=== PATIENT | female | born 1980 | race Asian ===

== ENCOUNTER 2016-09-08 01:42 | Inpatient (IN) | payer OTHER ==
[2016-09-08] VITALS (7 sets, daily range): BP systolic 105–136; BP diastolic 59–89; PULSE 71–78; RESP 16–69; Ht 160 cm; Wt 67.7 kg
[~2016-09-08] VITALS: Ht 160 cm; Wt 67.7 kg
[~2016-09-08 01:42] MED LIST: ACET325T33 PO; CEPH-443 PO; CIPR500T4 PO; ERYTOPOI LEFT EYE; HYDR-3498 PO; IBUP-1542 PO; ONDA4TAB8 PO; PREN-29 PO
[2016-09-08] MEDS ORDERED: LACTATED RINGER'S 1,000 ML IV SCH (02:20)
[2016-09-08] MEDS ORDERED: METHYLERGONOVINE 0.2 MG INJ IM PRN ×2 (02:30→05:00)
[2016-09-08] MEDS ORDERED: LIDOCAINE 1% (MPF) 30 ML INJ INJ PRN (02:30)
[2016-09-08] MEDS ORDERED: LACTATED RINGER'S 1,000 ML IV PRN (02:30)
[2016-09-08] MEDS ORDERED: IBUPROFEN 600 MG TAB PO PRN (02:30)
[2016-09-08] MEDS ORDERED: MISOPROSTOL 200 MCG TAB PR PRN ×2 (02:30→05:00)
[2016-09-08] MEDS ORDERED: CARBOPROST 250 MCG INJ IM PRN ×2 (02:30→05:00)
[2016-09-08] MEDS ORDERED: OXYTOCIN 30 UNITS/LR 500 ML IV SCH ×2 (02:30)
[2016-09-08] MEDS ORDERED: BUTORPHANOL 2 MG INJ IV PRN (02:30)
[2016-09-08] MEDS ORDERED: OXYTOCIN 30 UNITS/LR 500 ML IV PRN ×2 (02:30→05:00)
[2016-09-08 03:09] LABS: ADD SCAN DIFF NO
[2016-09-08 03:19] LABS: BASOPHILS % 0.3 % (0.0-2.0); EOSINOPHILS % 0.3 % (0.0-7.0); HEMATOCRIT 33.2 % (37.0-47.0); HEMOGLOBIN 10.9 g/dl (12.0-16.0); LYMPHOCYTES # 1.9 10^3/ul (0.8-2.9); LYMPHOCYTES % 21.5 % (15.0-51.0); MEAN CORPUSCULAR HEMOGLOBIN 28.5 pg (29.0-33.0); MEAN CORPUSCULAR HGB CONC 32.8 g/dl (32.0-37.0); MEAN CORPUSCULAR VOLUME 86.9 fl (82.0-101.0); MEAN PLATELET VOLUME 11.7 fl (7.4-10.4); MONOCYTE # 0.6 10^3/ul (0.3-0.9); MONOCYTES % 7.2 % (0.0-11.0); NEUTROPHILS % 69.7 % (39.0-77.0); PLATELET COUNT 293 10^3/UL (140-415); RED BLOOD COUNT 3.82 10^6/ul (4.20-5.40); RED CELL DISTRIBUTION WIDTH 13.6 % (11.5-14.5); WHITE BLOOD COUNT 8.6 10^3/ul (4.8-10.8)
[2016-09-08 03:27] LABS: INR 0.87; PROTIME 11.8 Sec (12.2-14.2); PT RATIO 0.9
[2016-09-08 03:28] LABS: PARTIAL THROMBOPLASTIN TIME 28.9 Sec (25.0-35.0)
--- NOTE | 2016-09-08 04:48 | HP ---
Date/Time of Note Date/Time of Note DATE: 09/08/16 TIME: 04:46 OB - History Hx of Present Chief Complaint: contractions Estimated Due Date: Sep 10, 2016 : 4 Para: 2 Spontaneous : 0 Therapeutic : 1 Ultrasounds: Normal mid trimester US Obstetrical Complications: None Medical Complications: None Past Family/Social History * Past Medical, Surgical, Family and Obstetric Histories reviewed from chart. GBS Status: Negative OB Admission Exam Vital Signs Vital Signs Vital Signs Date Time Temp Pulse Resp B/P Pulse Ox O2 Delivery O2 Flow Rate FiO2 09/08/16 01:53 97.9 77 18 136/89 Room Air Physical Exam HEENT: WNL Heart: Rhythm Normal Lungs: Clear Abdomen: WNL Extremities: Normal Cervical Dilatation: 4cm Effacement: 50% Station: -1 Membranes: Intact Heart Rate: 130's Accelerations: Accelerations Present Decelerations: No Decelerations Varibility: Moderate Last 72 hours Lab Results CBC & BMP 09/08/16 02:50 OB Assessment/Plan Reason for admission: active labor Plan: Expectant Management FALLON BAIN MD Sep 08, 2016 04:48
--- NOTE | 2016-09-08 04:51 | LDN ---
Date/Time of Note Date/Time of Note DATE: 09/08/16 TIME: 04:48 Delivery Summary Weeks of Gestation 39 weeks and 5 days Placenta Delivered: Spontaneously Meconium: none Episiotomy: No Perineal laceration: 1 Laceration repair: First degree perineal laceration repaired Anesthesia type: Local Estimated blood loss: 200 Sponge & Needle done & correct: Yes All needle counts correct: Yes Any foreign bodies felt in the: No Problems: Delivery Information Sex Sex: female Apgars 1 Minute: 8 5 Minute: 9 Suctioning Nose & mouth suctioned at brijesh: Yes Delee suction performed: No Umbilical Cord Umbilical cord with: 3 Vessels Cord presentations: nuchal cord Nuchal cord present X: 1 Cord Blood was obtained: Yes Mother & Baby Disposition Disposition Mom & Baby to Maternity; Good: Yes FALLON BAIN MD Sep 08, 2016 04:51
[2016-09-08] MEDS ORDERED: LACTATED RINGER'S 1,000 ML IV* SCH (04:52)
[2016-09-08] MEDS ORDERED: DIBUCAINE 1% 30 GM OINT PR PRN (05:00)
[2016-09-08] MEDS ORDERED: WITCH HAZEL/GLYCERIN PAD PR PRN (05:00)
[2016-09-08] MEDS ORDERED: BENZOCAINE 20% 56 ML SPRAY TOP PRN (05:00)
[2016-09-08] MEDS ORDERED: ACETAMINOPHEN/CODEINE #3 TAB PO PRN (05:00)
[2016-09-08] MEDS ORDERED: ACETAMINOPHEN 325 MG TAB PO PRN (05:00)
[2016-09-08] MEDS: IBUPROFEN 600 MG TAB PO SCH ×4 (06:00→23:36)
--- NOTE | 2016-09-08 06:40 | TRIAGE ---
OB Triage Datetime Report Generated by CPN: 09/08/2016 06:39 Datetime: 09/08/2016 04:54 Stage of : Recovery Pain Assessment Pain Scale: 0 Pain Presence: None/Denies Pain Type: N/A Datetime: 09/08/2016 04:39 Stage of : Recovery Pain Assessment Pain Scale: 0 Pain Presence: None/Denies Pain Type: N/A Datetime: 09/08/2016 04:24 Stage of : Recovery Pain Assessment Pain Scale: 0 Pain Presence: None/Denies Pain Type: N/A Datetime: 09/08/2016 04:09 Stage of : Recovery Pain Assessment Pain Scale: 0 Pain Presence: None/Denies Pain Type: N/A Datetime: 09/08/2016 03:54 Stage of : Recovery Temperature Route: Oral Pain Assessment Pain Scale: 0 Pain Presence: None/Denies Pain Type: N/A Datetime: 09/08/2016 03:48 Labor Evaluation Frequency: 1-3 Monitor Mode: External Duration (sec)2399: 40-70 Quality: Strong Pattern: Normal: <= 5 Contractions in 10 Minutes Resting Tone [place]: Relaxed Heart Rate FHR Baseline Rate: 135 Monitor Mode: External US FHR Baseline Changes: No Baseline Change Variability: Moderate 6-25 bpm Accelerations: 15X15 Decelerations: None Category: Category I Comments: Pt pushing for delivery during this interval Comments: Baby girl delivered. Datetime: 09/08/2016 03:43 Membrane Status: Ruptured Membranes Rupture Method: Artificial Amniotic Fluid Color: Clear Amniotic Fluid Amount: Moderate Datetime: 09/08/2016 03:33 Vaginal Exam Dilatation (cms): 10.0 Effacement (%): 100 Station: 0 Membrane Status: Bulging Datetime: 09/08/2016 03:31 Vaginal Exam Dilatation (cms): 9.5 Effacement (%): 100 Station: 0 Datetime: 09/08/2016 03:30 Labor Evaluation Frequency: 2-3 Monitor Mode: External Duration (sec)2399: 60-70 Quality: Strong Pattern: Normal: <= 5 Contractions in 10 Minutes Resting Tone [place]: Relaxed Heart Rate FHR Baseline Rate: 125 Monitor Mode: External US FHR Baseline Changes: No Baseline Change Variability: Moderate 6-25 bpm Accelerations: 15X15 Decelerations: None Category: Category I Datetime: 09/08/2016 03:22 Vaginal Exam Dilatation (cms): 9.5 Effacement (%): 90 Station: -1 Exam By: MG Membrane Status: Bulging Datetime: 09/08/2016 03:12 Pain Assessment Pain Scale: 10 Pain Presence: Intermittent Pain Type: Contraction; Pressure Pain Location: Abdomen; Back; Perineum Pain Relief Measures: Comfort Measures Datetime: 09/08/2016 03:05 Stage of : Labor Datetime: 09/08/2016 03:02 Vaginal Exam Dilatation (cms): 9.5 Effacement (%): 90 Station: -2 Exam By: MG Membrane Status: Bulging Datetime: 09/08/2016 03:00 Labor Evaluation Frequency: 2-5 Monitor Mode: External Duration (sec)2399: 40-60 Quality: Moderate Pattern: Normal: <= 5 Contractions in 10 Minutes Resting Tone [place]: Relaxed Heart Rate FHR Baseline Rate: 135 Monitor Mode: External US FHR Baseline Changes: No Baseline Change Variability: Moderate 6-25 bpm Accelerations: 15X15 Decelerations: None Category: Category I Datetime: 09/08/2016 02:34 Assessment Type: Admission Assessment Maternal Assessment Level of Consciousness: Fully Conscious DTR's/Clonus: DTRs 2+; No Clonus Headache: Denies Blurred Vision: No Respiratory Effort: Unlabored; Regular Rhythm; Equal Expansion Breath Sounds, Left: Clear and Equal Breath Sounds, Right: Clear and Equal Nausea/Vomiting: Denies RUQ Epigastric Pain: Denies Lower Extremities Edema: None Degree: None Upper Extremities Edema: None Degree: None Facial Edema: None Fall Risk Assessment History of Falling: (0) No Secondary Diagnosis: (0) No Ambulatory Aid: (0) Bedrest/Nurse Assist Gait: (0) Normal/Bedrest/Immobile Mental Status: (0) Oriented to Own Ability Datetime: 09/08/2016 02:25 Labor Evaluation Frequency: 2-4 Monitor Mode: External Duration (sec)2399: 90-130 Quality: Moderate Pattern: Normal: <= 5 Contractions in 10 Minutes Resting Tone [place]: Relaxed Heart Rate FHR Baseline Rate: 125 Monitor Mode: External US FHR Baseline Changes: No Baseline Change Variability: Minimal - Undetectable to <=5 bpm Category: Category II Datetime: 09/08/2016 02:10 Time of Arrival: 09/08/2016 02:30 EGA: 40.3 Arrived By: Ambulatory Arrived From: Other Unit in Hospital Labor Evaluation Frequency: 2-3 Monitor Mode: External Duration (sec)2399: 70-120 Quality: Moderate Pattern: Normal: <= 5 Contractions in 10 Minutes Resting Tone [place]: Relaxed Heart Rate FHR Baseline Rate: 125 Monitor Mode: External US FHR Baseline Changes: No Baseline Change Variability: Moderate 6-25 bpm Accelerations: 15X15 Decelerations: None Category: Category I Comments: Moderate variability followed by period of minimal variability Datetime: 09/08/2016 02:05 Time of Arrival: 09/08/2016 01:37 EGA: 40.3 Arrived By: Wheelchair Arrived From: Home Chief Complaint: UCS SINCE 1800 Movement: Present Contractions: Regular Time Contractions Began: 09/07/2016 18:00 Contractions: q2-3 Rupture of Membranes: Denies Vaginal Bleeding: None Vaginal Discharge: Denies Recent Sexual Intercouse: Yes Abdominal Trauma: Not Applicable Patient Complaints: Contractions Time Provider Notified: 09/08/2016 02:07 Provider Notified: MD BAIN Initial Plan: VS, EFM, SVE Datetime: 09/08/2016 01:57 Vaginal Exam Dilatation (cms): 4.0 Effacement (%): 80 Station: -2 Exam By: MG Membrane Status: Bulging Datetime: 09/08/2016 01:55 Assessment Type: Triage Maternal Assessment Level of Consciousness: Fully Conscious DTR's/Clonus: DTRs 2+; No Clonus Headache: Denies Blurred Vision: No Respiratory Effort: Unlabored; Regular Rhythm; Equal Expansion Breath Sounds, Left: Clear and Equal Breath Sounds, Right: Clear and Equal Nausea/Vomiting: Denies RUQ Epigastric Pain: Denies Lower Extremities Edema: None Degree: None Upper Extremities Edema: None Degree: None Facial Edema: None Fall Risk Assessment History of Falling: (0) No Secondary Diagnosis: (0) No Ambulatory Aid: (0) Bedrest/Nurse Assist IV Therapy: (0) No Gait: (0) Normal/Bedrest/Immobile Mental Status: (0) Oriented to Own Ability Fall Score: 0 Fall Risk Score Definition: No Risk: No action required Membranes Ruptured Date/Time: 09/08/2016 03:43 Amniotic Fluid Odor: None Presentation 'A': Cephalic Datetime: 09/08/2016 01:50 Stage of : OB Triage Monitor Mode: External Resting Tone [place]: Relaxed Contraction Comments: APPLIED Monitor Mode: External US Comments: APPLIED
[2016-09-08] MEDS: SENNA/DOCUSATE NA (8.6MG/50MG) TAB PO SCH ×2 (09:00→21:09)
[2016-09-09 04:00] VITALS: BP 115/66; PULSE 63; RESP 19
[2016-09-09] MEDS: IBUPROFEN 600 MG TAB PO SCH ×4 (06:00→23:50)
[2016-09-09 08:00] VITALS: BP 101/58; PULSE 70; RESP 16
[2016-09-09 08:39] LABS: ADD SCAN DIFF NO
[2016-09-09] MEDS: SENNA/DOCUSATE NA (8.6MG/50MG) TAB PO SCH ×2 (09:38→21:03)
[2016-09-09 11:15] LABS: BASOPHILS % 0.5 % (0.0-2.0); EOSINOPHILS # 0.1 10^3/ul (0.0-0.5); EOSINOPHILS % 0.8 % (0.0-7.0); HEMATOCRIT 32.1 % (37.0-47.0); HEMOGLOBIN 10.2 g/dl (12.0-16.0); LYMPHOCYTES # 2.3 10^3/ul (0.8-2.9); LYMPHOCYTES % 26.4 % (15.0-51.0); MEAN CORPUSCULAR HEMOGLOBIN 28.4 pg (29.0-33.0); MEAN CORPUSCULAR HGB CONC 31.8 g/dl (32.0-37.0); MEAN CORPUSCULAR VOLUME 89.4 fl (82.0-101.0); MEAN PLATELET VOLUME 11.9 fl (7.4-10.4); MONOCYTE # 0.6 10^3/ul (0.3-0.9); NEUTROPHIL # 5.6 10^3/ul (1.6-7.5); NEUTROPHILS % 64.5 % (39.0-77.0); PLATELET COUNT 241 10^3/UL (140-415); RED BLOOD COUNT 3.59 10^6/ul (4.20-5.40); WHITE BLOOD COUNT 8.6 10^3/ul (4.8-10.8)
[2016-09-09 15:44] VITALS: BP 112/68; PULSE 75; RESP 16
--- NOTE | 2016-09-09 19:29 | DS ---
Date/Time of Note Date/Time of Note DATE: 09/09/16 TIME: 19:29 Obstetrical Discharge Record Final Diagnosis Final Diagnosis: Term delivered Vaginal Delivery Obstetrical Delivery: Spontaneous, Laceration, Repaired Condition on Discharge Physical Assessment Voiding: Yes Bowel Movement: Yes Breast: Soft, non-tender Fundus: Firm Calf Tenderness: No Patient Condition: Stable FALLON BAIN MD Sep 09, 2016 19:29
[2016-09-09 20:00] VITALS: BP 120/71; PULSE 74; RESP 18
[2016-09-10 04:27] VITALS: BP 126/81; PULSE 60; RESP 18
[2016-09-10] MEDS: IBUPROFEN 600 MG TAB PO SCH ×3 (05:41→18:00)
[2016-09-10 08:00] VITALS: BP 109/57; PULSE 63; RESP 18
[2016-09-10] MEDS ORDERED: DIPHTH/TET/ACEL PERTUSS (ADULT) 0.5 ML VIAL IM* ONE (09:00)
[2016-09-10] MEDS: SENNA/DOCUSATE NA (8.6MG/50MG) TAB PO SCH (09:00)
[2016-09-10] MEDS ORDERED: LANOLIN 7 GM TUBE TOP PRN (11:30)
[2016-09-10 15:38] VITALS: BP 115/78; PULSE 89; RESP 18
== END 2016-09-10 20:35 | disposition home or self-care (01) | DRG 775 ==
LOC: OBT 01:42 → L-D 01:43 → OBT 02:17 → L-D 02:18 → PP1 10:42
PROVIDERS: ADMIT Obstetrics & Gynecology; ATTEND Obstetrics & Gynecology
PROC: 10E0XZZ Delivery of Products of Conception, External Approach (ICD-10-PCS; principal; 2016-09-08)
PROC: 0HQ9XZZ Repair Perineum Skin, External Approach (ICD-10-PCS; 2016-09-08)
PROC: 3E0234Z Introduction of Serum, Toxoid and Vaccine into Muscle, Percutaneous Approach (ICD-10-PCS; 2016-09-10)
DX: O69.1XX0 Labor and delivery complicated by cord around neck, with compression, not applicable or unspecified (principal); O70.0 First degree perineal laceration during delivery; Z3A.39 39 weeks gestation of pregnancy; Z37.0 Single live birth; Z23 Encounter for immunization
CPT/HCPCS: 85025; 85610; 85730; 86592; 86900; 86901; 87340; 90715; G0463; J2590; J7120

== ENCOUNTER 2016-09-13 23:28 | Emergency (ER) | payer OTHER ==
[~2016-09-13] VITALS: Ht 157.5 cm; Wt 61.0 kg
[~2016-09-13 23:28] MED LIST changes: -ACET325T33 PO; -CEPH-443 PO; -CIPR500T4 PO; -ERYTOPOI LEFT EYE; -HYDR-3498 PO; -IBUP-1542 PO; -ONDA4TAB8 PO
[2016-09-13 23:33] VITALS: Ht 157.5 cm; Wt 61.0 kg
[2016-09-14 03:06] LABS: URINE BLOOD (Dip) POC Trace-intact (NEGATIVE)
--- NOTE | 2016-09-14 04:56 | RADRPT ---
PROCEDURE: XR Right Hip. CLINICAL INDICATION: Pain TECHNIQUE: AP supine portable and cross-table lateral views of the right hip were performed. COMPARISON: None. FINDINGS: There is normal mineralization and alignment. No fracture or osseous lesion is identified. There are no significant degenerative changes in the hip. The soft tissues are unremarkable. IMPRESSION: Unremarkable right hip. RPTAT: HJES .Donnie Cooper MD, MD Date Time Electronically viewed and signed by .Donnie Cooper MD, on 09/14/2016 04:55 .S/
[2016-09-14] MEDS ORDERED: ACET325T33 PO (05:04)
--- NOTE | 2016-09-18 01:56 | ERA ---
ER Documentation Chief Complaint Date/Time DATE: 09/18/16 TIME: 01:51 Chief Complaint right hip pain, denies injury HPI This is a 36-year-old female 1 week post vaginal delivery. Patient has a chief complaint of sharp pain down right hip for the past 2 months. Patient has seen the LEAD SUPPLY WORKER who said this pain to go away after giving on Friday. Patient states that the pain has not subsided. Patient says it is difficult to walk secondary to pain. Patient has not taken any medications to relieve the symptoms. Has no other complaints at this time and describes no other associated manifestations. ROS All systems reviewed and are negative except as per history of present illness. Medications Home Meds Active Scripts Acetaminophen* (Tylenol*) 325 Mg Tablet, 1 TAB PO Q8 Y for PAIN AND OR ELEVATED TEMP, #20 TAB Prov:TUYET ESCOBAR PA-C 09/14/16 Reported Medications Vit-Fe Fumarate-FA* (Hung Tablet*) 1 Tab Tablet, 1 TAB PO DAILY, TAB 03/14/14 Allergies Allergies: Coded Allergies: No Known Allergy (Unverified , 09/08/16) PMhx/Soc History of Surgery: Yes (APPENDECTOMY) Anesthesia Reaction: No Hx Neurological Disorder: No Hx Respiratory Disorders: No Hx Cardiac Disorders: No Hx Psychiatric Problems: No Hx Miscellaneous Medical Probl: No Hx Alcohol Use: Yes (OCCASSIONALLY) Hx Substance Use: No Hx Tobacco Use: No Smoking Status: Never smoker Physical Exam Physical Exam Const: Well-appearing well-developed 36-year-old female who is 1 week status post vaginal delivery Head: Atraumatic Eyes: Normal Conjunctiva ENT: Normal External Ears, Nose and Mouth. Neck: Full range of motion..~ No meningismus. Resp: Clear to auscultation bilaterally Cardio: Regular rate and rhythm, no murmurs Abd: Soft, non tender, non distended. Normal bowel sounds Skin: No petechiae or rashes Back: No midline or flank tenderness Ext: Limited range of motion of the right hip secondary to pain. Passive range of motion is full. No cyanosis, or edema Neur: Awake and alert. Slight limp secondary to pain of the right hip. Psych: Normal Mood and Affect Results 24 hrs Laboratory Tests Test 09/14/16 03:09 Bedside Urine pH (LAB) 7.0 Bedside Urine Protein (LAB) Trace Bedside Urine Glucose (UA) Negative Bedside Urine Ketones (LAB) Negative Bedside Urine Blood Trace-intact Bedside Urine Nitrite (LAB) Negative Bedside Urine Leukocyte Esterase (L Negative Procedures/MDM Well-appearing 36-year-old female presenting for pain on the right hip that started in the third trimester . X-ray was ordered and read by the radiologist, the impression was as follows: Unremarkable. At this time I am unable to exclude ligamentous or other soft tissue injuries. I have little suspicion for VTE, fracture or other bony pathology. Patient's most likely diagnosis is right hip pain from unknown origin. I have discussed this with the patient and have recommended that she follows up with her PCP and/or the OB/ TILE INSPECTOR within the next 1-3 days for further evaluation and possible referral to a specialist. Patient has verbally responded that she understands the treatment plan and management. Patient will be discharged for acetaminophen for discomfort. Patient is currently breast-feeding at this time. Departure Diagnosis: Primary Impression: Hip pain, right Condition: Stable Patient Instructions: Leg and Knee Exercises: Hip Pulls Additional Instructions: Follow up with your PCP within the next 1-3 days for a more thorough evaluation and a possible referral to a specialist. Return the the emergency department immediately if symptoms worsen or change. If you have any questions regarding medications, ask your pharmacist or us before you leave. If any adverse reactions occur while taking your medications, discontinue the treatment and return to the emergency department immediately. Take your medications as directed, and complete the entire course of treatment. TUYET ESCOBAR PA-C Sep 18, 2016 01:56
== END 2016-09-14 05:13 | disposition home or self-care (01) ==
LOC: FTE 23:28
DX: M25.551 Pain in right hip (principal)
CPT/HCPCS: 73510; 81003